=== PATIENT | female | born 1990 | race Caucasian/White ===

== ENCOUNTER 2021-11-13 23:33 | Inpatient (IN) | payer OTHER, SELFPAY ==
[2021-11-14] VITALS (12 sets, daily range): BP systolic 105–119; BP diastolic 57–66; PULSE 67–88; RESP 18; TEMP 36.2–36.6; O2SAT 96–97
--- NOTE | 2021-11-14 00:06 | PCM.HP.BLA ---
History and Physical Date of Admission: 11/13/21 HPI: 31-year-old at 41/6, [facility] 11/01/2021, admitted for left hip pain. Precipitous delivery. 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 Denies headache, vision changes, chest pain or shortness of breath, nausea or vomiting, diarrhea or constipation, fevers or chills. Reports movement, leaking of fluid, vaginal bleeding. Contractions. Did not have Glucola in this . 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 History: G1: FT G2: FT G3: current Medical history: Denies Surgical history: Denies Allergies: No known drug allergies Medications: vitamins Family history: No history of blood clots or bleeding disorders Social history: Denies tobacco, alcohol, drug use Review of system: Negative otherwise stated above Physical exam: Vitals pending General: No acute distress HEENT: Normal cephalic/atraumatic, PERRLA Cardiorespiratory: No increased effort Abdomen: Soft, nontender, gravid Extremities: No edema Neurologic: Cranial nerves II through XII grossly intact, no focal deficits Musculoskeletal: Strength 5 out of 5 throughout all extremities Cervical exam: 10 cm ruptured heart rate: 120/mod clare/no accel/no decel [place]: irregular labs: has done at home, pending. Labs: CBC, T&S A/P: 31-year-old at 41/6, [facility] 11/01/2021, admitted for precipitous delivery. -Precipitous delivery of viable infant female. -Did not have Glucola in this . 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 Likely musculoskeletal secondary to labor and delivery. Will monitor postdelivery. Depending on how patient does can consider physical therapy consult while inpatient and or on discharge. ?GBS unknown, no treatment
[2021-11-14 00:13] LABS: Absolute Lymphocyte Count 2.22 X10^3/uL (0.83-4.51); Basophil# 0.09 X10^3/uL; Basophil% 0.5 % (0-1); Eosinophil# 0.05 X10^3/uL; Eosinophils% 0.3 % (0-5); Hematocrit 39.9 % (37-47); Hemoglobin 13.4 g/dL (12.0-15.0); Lymphocyte # 2.22 X10^3/ul (0.83-4.51); Lymphocyte % 12.8 % (19-41); Mean Corp Hgb Conc 33.6 g/dL (32-36); Mean Corpuscular Hgb 28.3 pg (27.0-32.0); Mean Corpuscular Volume 84.4 fL (81-99); Mean Platelet Vol. 10.5 fl (6.2-12.0); Monocyte# 0.83 X10^3/uL; Monocyte% 4.8 % (0-10); NRBC Flagged by Analyzer 0 % (0-5); Neutrophil # 13.98 X10^3/uL (2.7-7.7); Neutrophil % 80.9 % (47-70); Platelet Count 256 K/mm3 (150-450); RBC Distribution Width CV 13.4 % (11.6-14.6); RBC Distribution Width SD 41.2 fl (35.1-43.9); Red Blood Count 4.73 M/mm3 (4.2-5.4); White Blood Count 17.3 K/mm3 (4.4-11.0)
--- NOTE | 2021-11-14 00:17 | EX.PCM.OBRPT ---
Vaginal Delivery Operative Information Date of Procedure: 11/13/21 Pre-Operative Diagnosis: Kruse intrauterine Post-Operative Diagnosis: Kruse intrauterine Surgery / Procedure Performed: Spontaneous Vaginal Delivery Type of Anesthesia: None Estimated Blood Loss: 400cc Findings Description of Procedure: Precipitous vaginal delivery. Patient delivered at time of arrival. Baby on mom's chest, cord was clamped. Spontaneous delivery of placenta,declined Swanson-Yosvany Maneuver. Placenta delivered at 0022. No lacerations. Patient declined pitocin. Discussed routine use of pitocin has been demonstrated to decrease hemorrhage. hemorrhage can lead to maternal anemia (potential requiring blood transfusion), fatigue, decreased/delayed milk production. Patient declines. Infant A Gender: Female (1 minute): 8 (5 minute): 9
--- NOTE | 2021-11-14 05:20 | PCM.PN.OB ---
Subjective Subjective Feeling well. Sore. Lochia minimal. Objective Data Objective Data Vital Signs: Vital Signs Temp Pulse BP 97.9 F 67 106/57 L 11/14/21 01:57 11/14/21 02:31 11/14/21 02:31 Intake & Output: Intake and Output for Last 24 Hours 11/12/21 11/13/21 11/14/21 23:59 23:59 23:59 Output Total 800 / 800 Balance -800 / -800 Lab / Micro Data Attestation: I reviewed the patient's lab results. Result Diagrams: 11/13/21 23:59 Labs: Laboratory Results - last 24 hr 11/13/21 23:59: WBC 17.3 H, RBC 4.73, Hgb 13.4, Hct 39.9, MCV 84.4, MCH 28.3, MCHC 33.6, RDW Std Deviation 41.2, RDW Coeff of Chas 13.4, Plt Count 256, MPV 10.5, Immature Gran % (Auto) 0.700, Neut % (Auto) 80.9 H, Lymph % (Auto) 12.8 L, [place] % (Auto) 4.8, Eos % (Auto) 0.3, Baso % (Auto) 0.5, Absolute Neuts (auto) 14.0 H, Absolute Lymphs (auto) 2.22, Nucleated RBC % 0 11/13/21 23:59: Blood Type B POSITIVE, Antibody Screen NEGATIVE Physical Exam Const alert, oriented x3 and no apparent distress HEENT normocephalic Head and Scalp: atraumatic Neck full ROM Resp normal respiratory effort Cardio regular rate GI normal to inspection, nondistended, normoactive bowel sounds GI Narrative: Uterus 2 cm below umbilicus Back/Spine normal ROM Extremity normal to inspection Extremity Narrative: Minimal pedal edema Neuro no focal motor deficits and no sensory deficits noted Psych mental status grossly normal and affect normal Assessment & Plan (1) Vaginal delivery: PLAN: day 1 status post . GBS unknown. Left hip pain improved, able to ambulate. Plans to see chiropractor. Discussed possibility of physical therapy as well if needed. Likely home tomorrow.
== END 2021-11-14 11:15 | disposition left against medical advice (07) | DRG 807 ==
PROVIDERS: Admitting Provider Student in an Organized Health Care Education/Training Program; Visit Provider Student in an Organized Health Care Education/Training Program
DX: O62.3 Precipitate labor (principal); Z37.0 Single live birth; Z3A.41 41 weeks gestation of pregnancy; Z53.29 Procedure and treatment not carried out because of patient's decision for other reasons
CPT/HCPCS: 59025; 59050; 85025; 86850; 86900; 86901; 99218; G0378